=== PATIENT | female | born 1975 | race Caucasian/White ===

== ENCOUNTER → 2016-08-07 | Outpatient (CLI) | payer OTHER ==
[~2016-08-07] MED LIST: IBUP-1050 PO
--- NOTE | 2016-08-07 16:26 | MAMMOGRAPHY REPORT ---
BILATERAL DIGITAL SCREENING MAMMOGRAM TOMOSYNTHESIS WITH CAD: 08/07/2016 CLINICAL HISTORY: Routine screening. Patient has no complaints. TECHNIQUE: Breast tomosynthesis in addition to standard 2D mammography was performed. Current study was also evaluated with a Computer Aided Detection (CAD) system. COMPARISON: Comparison is made to exams dated: 12/02/2013 ultrasound, 12/02/2013 mammogram, 3 mammogram, 05/17/2011 mammogram, 05/17/2011 ultrasound - [facility], and 09/04/2007. BREAST COMPOSITION: There are scattered areas of fibroglandular density in both breasts. FINDINGS: The parenchymal pattern is similar to prior mammograms. No developing mass, architectural distortion or cluster of suspicious microcalcifications is seen in either breast. IMPRESSION: ACR BI-RADS CATEGORY 2: BENIGN There is no mammographic evidence of malignancy. A 1 year screening mammogram is recommended. The pa tient will receive written notification of the results. Approximately 10% of breast cancers are not detected with mammography. A negative mammographic report should not delay biopsy if a clinically suggestive mass is present. Aneta Multani M.D. ay/:08/07/2016 14:49:50 [facility] Director: Jonna Staley, [facility] letter sent: Normal 1/2 BI-RADS Code: ACR BI-RADS Category 2: Benign
== END | disposition home or self-care (01) ==
LOC: C.MAMM 09:22
PROVIDERS: ATTEND Physician Assistant
DX: Z12.31 Encounter for screening mammogram for malignant neoplasm of breast (principal)

== ENCOUNTER → 2017-09-24 | Outpatient (CLI) | payer OTHER ==
--- NOTE | 2017-09-24 15:57 | DIAGNOSTIC IMAGING REPORT ---
R FOOT MIN 3 VIEWS ROUTINE CLINICAL HISTORY: 41 years-old Female presenting with RT FOOT PAIN, TOE INJURY, injury one week ago along the lateral side of the foot including the fifth toe. TECHNIQUE: Frontal, oblique, and lateral views of the right foot were obtained. COMPARISON: None. FINDINGS: Nondisplaced radiolucent linear abnormality along the medial head of the proximal phalanx of the fifth toe most suspicious for nondisplaced fracture but only visible clearly on one view. Symphalangism of the middle and distal phalanges of the fifth toe, normal variant. No malalignment. Enthesophyte at the origin of the plantar fascia. No radiographic soft tissue abnormality. IMPRESSION: Nondisplaced fracture of the head of the proximal phalanx of the fifth toe suspected. Correlate for point tenderness. Electronically signed by: Shane Wright M.D. 09/24/2017 3:55 PM Dictated Date/Time: 09/24/2017 3:53 PM
== END | disposition home or self-care (01) ==
LOC: C.LABPVFM 15:32
PROVIDERS: ATTEND Family Medicine
DX: S99.921A Unspecified injury of right foot, initial encounter (principal); M79.671 Pain in right foot; X58.XXXA Exposure to other specified factors, initial encounter